=== PATIENT | female | born 1945 | race Caucasian/White ===

== ENCOUNTER → 2016-07-14 | Day surgery (SDC) | payer BC ==
[~2016-07-14] VITALS: Ht 165.1 cm; Wt 111.1 kg
[2016-07-14] VITALS (8 sets, daily range): BP systolic 110–138; BP diastolic 65–91
[~2016-07-14] MED LIST: Akten 3.5% 1ml Btl ONE; BSS 15ml BTL ONE; BSS 500ml btl ONE; Carbachol 0.01% Op Soln 1.5ml vial ONE; Dexamethasone 4mg/ml vial ONE; DiphenhydrAMINE 50mg/ml Inj IVP PRN; EPINEPHrine 1mg/1ml Amp ONE; Gatifloxacin Opth Solution 0.5% ONE; Glycopyrrolate 0.2mg/ml 1ml Vial ONE; LR 1000ml 1,000 ML IVLG SCH; LR 1000ml ONE; Labetalol 5mg/ml 20ml vial IV PRN; Lidocaine 1% MPF 10mg/ml 5ml ONE; NKM; Phenylephrine 2.5% Op Soln ONE; Povidone-Iodine 5% opth solution ONE; Sodium Hyaluronate 14 mg/ml 0.85ml ONE; Tobradex Opth Susp 2.5ml ONE; Tropicamide 1% Opth Soln ONE; fentaNYL 100 mcg/2 mL IV ONE
[2016-07-14] MEDS: Akten 3.5% 1ml Btl RIGHT EYE SCH ×3 (06:27→06:46)
[2016-07-14] MEDS: Tropicamide 1% Opth Soln RIGHT EYE SCH ×3 (06:27→06:47)
[2016-07-14] MEDS: Tobradex Opth Susp 2.5ml RIGHT EYE SCH ×3 (06:27→06:46)
[2016-07-14] MEDS: Phenylephrine 2.5% Op Soln RIGHT EYE SCH ×3 (06:28→06:46)
[2016-07-14] MEDS: Gatifloxacin Opth Solution 0.5% RIGHT EYE SCH ×3 (06:28→06:47)
--- NOTE | 2016-07-14 07:17 | Anethesia Preoperative Eval ---
Anesthesia Pre-op PMH/ROS General Date of Evaluation: Jul 14, 2016 Anesthesiologist: Marcial ASA Score: ASA 2 Mallampati Score Class I : Soft palate, uvula, fauces, pillars visible Class II: Soft palate, uvula, fauces visible Class III: Soft palate, base of uvula visible Class IV: Only hard plate visible Mallampati Classification: Class III Surgeon: Manoj Diagnosis: Right cataract Surgical Procedure: Right cataract extraction with IOL Anesthesia History: none Family History: no anesthesia problems Allergies: Coded Allergies: IBUPROFEN (Verified Allergy, Unknown, 07/13/16) PENICILLINS (Verified Allergy, Unknown, 07/13/16) Medications: see eMAR Past Medical History Cardiovascular: Reports: HTN, Denies: CAD, NM, arrhythmia, other, valve dz Pulmonary: Denies: COPD, CAT, asthma, other Gastrointestinal/Genitourinary: Reports: GERD, Denies: CRI, ESRD, other Neurologic/Psychiatric: Denies: CVA, TIA, dementia, depression/anxiety, other Endocrine: Denies: DM, hypothyroidism, other, steroids HEENT: Denies: METLAKATLA (L), METLAKATLA (R), cataract (L), cataract (R), glaucoma, other Hematology/Immune: Denies: DVT, anemia, bleeding disorder, other Musculoskeletal/Integumentary: Reports: OA, Denies: DDD, DJD, RA, edema, other Other: obesity - morbid Anesthesia Pre-op Phys. Exam Physician Exam Last Vital Signs Date Time Temp Pulse Resp B/P Pulse Ox O2 Delivery O2 Flow Rate FiO2 07/14/16 06:41 97.6 76 18 114/87 98 Room Air Constitutional: NAD Cardiovascular: RRR Respiratory: CTA Airway Exam Mallampati Score: Class III MO: limited ROM: limited Anesthesia Pre-op A/P Labs see chart Studies Pre-op Studies: EKG - sr Risk Assessment & Plan Assessment: ASA II Plan: MAC Status Change Before Surgery: No Pre-Antibiotics Drug: N/A EDOUARD SHELTON M.D. Jul 14, 2016 07:17
--- NOTE | 2016-07-14 07:18 | 48 Hour Post Anesthesia Eval ---
Post Anesthesia Evaluation Procedure: Right cataract extraction with IOL Date of Evaluation: Jul 14, 2016 Blood Pressure Systolic: 128 0: 82 Pulse Rate: 84 Respiratory Rate: 16 O2 Sat by Pulse Oximetry: 99 Airway: patent Nausea: No Vomiting: No Pain Intensity: 0 Hydration Status: adequate Cardiopulmonary Status: at baseline Mental Status/LOC: patient returned to baseline Post-Anesthesia Complications: 0 Follow-up care needed: ready to discharge EDOUARD SHELTON M.D. Jul 14, 2016 07:18
--- NOTE | 2016-07-14 07:18 | Immediate Post-Op Evaluation ---
Immediate Post-Op Evalulation Immediate Post-Op Evalulation Procedure: Right cataract extraction with IOL Date of Evaluation: Jul 14, 2016 Time of Evaluation: 08:13 IV Fluids: 100 Blood Products: 0 Estimated Blood Loss: 0 Urinary Output: 0 Blood Pressure Systolic: 122 Blood Pressure Diastolic: 91 Pulse Rate: 88 Respiratory Rate: 17 O2 Sat by Pulse Oximetry: 99 Temperature (Fahrenheit): 97.4 Pain Score (1-10): 0 Nausea: No Vomiting: No Complications 0 Patient Status: awake, reacts, patent, none Hydration Status: adequate Drug: N/A EDOUARD SHELTON M.D. Jul 14, 2016 07:18
--- NOTE | 2016-07-14 07:43 | Pre-Procedure Note/Attestation ---
Pre-Procedure Note/Attestation Complete Prior to Procedure Planned Procedure: right Procedure Narrative: cataract extraction with implant right eye Indications for Procedure Pre-Operative Diagnosis: cataract right eye Attestation I attest that I discussed the nature of the procedure; its benefits; risks and complications; and alternatives (and the risks and benefits of such alternatives ), prior to the procedure, with the patient (or the patient's legal compliance representative dealer). I attest that, if there was a reasonable possibility of needing a blood transfusion, the patient (or the patient's legal compliance representative dealer) was given the [facility] standardized written summary, pursuant to the [place] Blood Safety Act ([place] Health and Safety Code # 1645, as amended). I attest that I re-evaluated the patient just prior to the surgery and that there has been no change in the patient's H&P, except as documented below: LORNE CASON Jul 14, 2016 07:43
--- NOTE | 2016-07-14 08:13 | Brief Operative Note ---
Immediate Post Operative Note Operative Note Pre-op Diagnosis: cataract right eye Procedure: phacoemulsification of cataract with implant right eye Post-op Diagnosis: same as pre-op Surgeon: lorne schwartz Preventive Medicine Physician: none Anesthesiologist: emmanuel hills Anesthesia: MAC Specimen: none Complications: none Condition: stable Estimated Blood Loss: none Drains: none Implant(s) used?: Yes LORNE SCHWARTZ Jul 14, 2016 08:13
--- NOTE | 2016-07-14 15:18 | Operative Note - Dictated ---
DATE OF OPERATION: 07/14/2016 PREOPERATIVE DIAGNOSIS: Cataract, right eye. POSTOPERATIVE DIAGNOSIS: Cataract, right eye. PROCEDURE: Phacoemulsification of cataract, right eye with placement of posterior chamber intraocular lens. SURGEON: Paul Aranda M.D. BOW MAKING MACHINE OPERATOR: None. ANESTHESIA: MAC/topical. ANESTHESIOLOGIST: Dr. Barbi Thomas. INDICATION FOR PROCEDURE: Poor vision, right eye. DESCRIPTION OF FINDINGS: Nuclear sclerotic and posterior subcapsular cataract, right eye. DESCRIPTION OF PROCEDURE: The patient received a topical anesthetic block consisting of 3.5% Akten eye drops. The eye was prepped and draped in the usual manner. A lid speculum was placed and an operating Zeiss microscope was positioned. A temporal corneal groove was made with a judy blade. A SuperSharp blade made a stab incision at the 12 o'clock position. A 0.1 mL of 1% nonpreserved intracameral lidocaine was injected. Healon was instilled into the anterior chamber and a 2.5/2.8 mm trapezoidal judy blade was used to complete the temporal corneal wound. A cystotome was used to create an anterior capsular flap. Utrata forceps were used to complete the capsulorrhexis. BSS on a cannula was used to hydrodissect the nucleus. The lens nucleus was phacoemulsified in a phaco-fracture technique. Remaining cortical material was removed with the I/A and the posterior capsule was polished with the I/A on Cap vac. Healon was instilled into the capsular bag and anterior chamber, and an Pinon foldable one-piece posterior chamber intraocular lens, model ZCB00, power 20.5 diopter, serial number [id number] was placed in the injector. The lens was put in the capsular bag. The I/A tip was used to remove the Healon and position the lens. The wound edge was hydrated with BSS and a blunt-tipped cannula. The wound was checked and found to be watertight. The lid speculum was removed, and a drop of TobraDex and Zymaxid was placed. A clear plastic shield was taped over the eye. The patient tolerated the procedure well and left the operating room in good condition. Paul Aranda M.D. ([facility]) DR: EVELYN JOB#: [id number] CC: Noreen Hernandez M.D. MTDD
== END | disposition home or self-care (01) ==
LOC: SUR 06:04
DX: H25.11 Age-related nuclear cataract, right eye (principal); Z88.0 Allergy status to penicillin; Z88.6 Allergy status to analgesic agent; M17.0 Bilateral primary osteoarthritis of knee; M85.80 Other specified disorders of bone density and structure, unspecified site; Z80.3 Family history of malignant neoplasm of breast; E66.01 Morbid (severe) obesity due to excess calories; Z68.41 Body mass index [BMI] 40.0-44.9, adult; N18.3 Chronic kidney disease, stage 3 (moderate)
CPT/HCPCS: 66984; J0171; J1100; J3010; J7120; V2632; 94003; 94150